=== PATIENT | male | born 2000 ===

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

== ENCOUNTER 2022-01-13 12:08 | Emergency (ER) | payer MEDICAID, SELFPAY | END 2022-01-13 16:44 | disposition left against medical advice (07) | PROVIDERS: Emergency Provider Emergency Medicine | DX: R10.9 Unspecified abdominal pain (principal) ==

== ENCOUNTER 2022-01-21 22:26 | Emergency (ER) | payer MEDICAID, SELFPAY ==
--- NOTE | ~2022-01-21 | CT_ITS ---
EXAMINATION: CT ABDOMEN AND PELVIS WITHOUT CONTRAST CLINICAL INFORMATION: Abdominal pain COMPARISON: None TECHNIQUE: Multidetector volumetric imaging was performed from the superior aspect of the liver through the pubic symphysis. Sagittal and coronal reformatted images were obtained on the technologist's workstation. This CT examination was performed using dose optimization techniques as appropriate, variously including the following: *Automated exposure control *Adjustment of mA and/or kV according to patient size (this includes techniques or standardized protocols for targeted exams where dose is matched to indication/reason for exam; i.e. extremities or head) *Use of iterative reconstruction technique DLP: 339 mGy-cm FINDINGS: LUNG BASES: The visualized lung bases are unremarkable. LIVER, GALLBLADDER, AND BILIARY TREE: The liver is normal in size, shape, and attenuation. No focal hepatic lesion or biliary ductal dilatation is present. The gallbladder is grossly unremarkable. PANCREAS: Unremarkable. SPLEEN: Unremarkable. ADRENAL GLANDS: Unremarkable. KIDNEYS AND URETERS: The kidneys are normal in size, shape, and attenuation. No hydronephrosis, hydroureter, or calculi seen. No perinephric stranding. BLADDER: Unremarkable. GASTROINTESTINAL TRACT: No evidence of bowel obstruction or significant wall thickening. No free fluid or free air is seen. ABDOMINAL WALL: No significant hernia is appreciated. LYMPH NODES: No lymphadenopathy is seen, though assessment is limited in the absence of intravenous contrast. VASCULAR: Unremarkable. PELVIC VISCERA: Unremarkable. OSSEOUS STRUCTURES: Unremarkable. CT/CT abdomen pelvis wo con IMPRESSION: No acute findings identified in the abdomen/pelvis.
[2022-01-22 00:51] VITALS: BP 133/70; PULSE 56; RESP 16; TEMP 36.2; O2SAT 98; BMI 21.8
[2022-01-22 01:10] LABS: Hematocrit 46.5 % (42.0-52.0); Hemoglobin 16.4 g/dl (14.0-18.0); Mean Corpuscular HGB Conc 35.3 g/dl (31.0-36.0); Mean Corpuscular Hemoglobin 30.5 pg (27.0-33.0); Mean Corpuscular Volume 86.6 fL (80.0-98.0); Mean Platelet Volume 11.2 fL (9.4-12.4); Platelet Count 229 X10*3/uL (160-400); Red Blood Count 5.37 X10*6/uL (4.60-5.80); White Blood Count 13.9 X10*3/uL (4.8-10.8)
[2022-01-22 01:14] LABS: Appearance Urine CLEAR; Color Urine YELLOW; Glucose Urine UA NEG (NEG); Leukocyte Esterase Urine NEG (NEG); Nitrite Urine NEG (NEG); PH 6.5 (5.0-8.0); Specific Gravity - Urine 1.015 (1.005-1.025); Urine Blood NEG (NEG); Urine Ketones 15 MG/DL (NEG); Urine Protein NEG (NEG-TRACE)
[2022-01-22 01:23] LABS: Bacteria Urine TRACE /LPF; RBC Urine 0-2 /HPF (0); Squamous Epithelial Cell Urine TRACE /LPF; WBC Urine 0-2 /HPF (0-4)
[2022-01-22 01:41] LABS: Alanine Aminotransferase 34 U/L (0-40); Albumin Level 5.1 g/dL (3.5-5.0); Alkaline Phosphatase 113 U/L (39-117); Anion Gap 14 (12-20); Aspartate Amino Transferase 29 U/L (5-37); Bilirubin Total 1.5 mg/dL (0.0-1.0); Blood Urea Nitrogen 9 mg/dL (9-16); Calcium 10.2 mg/dL (8.4-10.2); Carbon Dioxide 27 mmol/L (22-29); Chloride 103 mmol/L (96-108); Creatinine Clr Calc Pharmacy 108.4; Estimated Glomerular Filt Rate > 60; Glucose Random 104 mg/dL (60-115); Lipase 14 U/L (8-78); Potassium 4.2 mmol/L (3.3-5.1); Sodium 140 mmol/L (135-145); Total Protein 7.9 g/dL (6.5-8.0)
[2022-01-22 01:43] LABS: Amphetamine Screen Urine Not Detected (Not Detect); Barbiturates, Urine Not Detected (Not Detect); Benzodiazepines Screen Urine Not Detected (Not Detect); Cannabinoid Screen Urine POSITIVE (Not Detect); Cocaine Screen Urine Not Detected (Not Detect); Fentanyl, urine Not Detected (Not Detect); Opiate Screen Urine Not Detected (Not Detect); Phencyclidine Screen Urine Not Detected (Not Detect)
[2022-01-22 03:09] VITALS: BP 141/85; PULSE 64; RESP 18; TEMP 36.6; O2SAT 99
[2022-01-22 04:16] VITALS: BP 122/53; PULSE 95; RESP 14; O2SAT 100
--- NOTE | 2022-01-22 06:12 | ED_ITS ---
HPI - Abdominal Pain General Chief Complaint: Abdominal Pain Stated Complaint: stomach pain Time Seen by Provider: 01/22/22 04:32 Source: patient Mode of arrival: ambulatory Limitations: no limitations History of Present Illness HPI narrative: 21-year-old male came in for evaluation of abdominal pain. Patient feels abdominal discomfort for the past month also been having back pain, patient describes the pain as discomfort which is generalized in the abdomen, no nausea or vomiting, feels constipated, discomfort is not related to food or drink, nothing relieve his symptoms, no fever chills. Patient declined past surgical history, no similar symptoms in the past. Related Data Allergies Allergy/AdvReac Type Severity Reaction Status Date / Time No Known Allergies Allergy Unverified 03/29/20 17:36 [No Known Allergies*] Review of Systems Review of Systems All other systems are reviewed and are negative Constitutional: Reports as per HPI and Reports no additional constitutional complaints Eyes: Reports as per HPI and Reports no additional eye complaints Reports system reviewed and no additional complaints, except as documented Cardiovascular: Reports as per HPI and Reports no additional cardiovascular complaints Respiratory: Reports as per HPI and Reports no additional respiratory complaints Gastrointestinal: Reports as per HPI and Reports no additional gastrointestinal complaints Genitourinary: Reports no additional female genitourinary complaints Musculoskeletal: Reports no additional musculoskeletal complaints Skin/Breast: Reports system reviewed and no additional complaints, except as docu Psychiatric: Reports no additional psychiatric complaints Endocrine: Reports no additional endocrine complaints Hematologic/Lymphatic: Reports no additional hematologic/lymphatic complaints Allergic/Immunologic: Reports no additional allergic/immunologic complaints Reports system reviewed and no additional complaints, except as documented and Reports Abnormal speech present [facility] Social History Social History Advance Directives: No Advance Directives Information Provided: No Physical Exam ED Vital Signs: Vital Signs - 24 hr 01/22/22 00:51 01/22/22 03:09 01/22/22 04:16 Temperature 97.1 F 97.9 F Pulse Rate 56 64 95 Respiratory Rate 16 18 14 Blood Pressure 133/70 141/85 H 122/53 L Pulse Oximetry 98 99 100 Oxygen Delivery Method Room Air Room Air Room Air BMI result Body Mass Index 21.8 Vital signs have been reviewed as appeared to be correct. Blood pressure normal. Heart rate normal. Respiration rate normal. Temperature normal. Oxygen saturation normal. Appearance: Alert. Oriented X3. No acute distress. Head: Normal external exam. Normocephalic. Atraumatic. No [place] signs noted. No raccoon eyes noted Eyes: PERRLA. EOMI. Conjunctiva and sclera normal. Eyelids normal. ENT: TM's Normal. Pharynx normal. Uvula midline. Moist mucous membranes. No trismus noted. No drooling noted. No muffled voice noted. Neck: Normal inspection. Neck supple. FROM. No adenopathy. Thyroid Normal. No meningeal signs. No neck mass noted. CVS: Normal heart rate and rhythm. Heart sound normal. No murmurs noted. Pulses normal throughout. Respiratory: No respiratory distress. Painless inspiration. Breath sounds normal. No wheezes/rales/rhonchi noted. Chest nontender. No accessory muscle usage noted or decreased air movement noted. Abdomen: Soft and nontender. Bowel sounds normal in all 4 quadrants. No distention noted. No organomegaly noted. No visible injury noted. Back: No CVA tenderness. Full range of motion noted. Skin: Skin warm and dry. Normal skin color. Normal skin turgor. No rashes/lesions/lacerations noted. Extremities: No lower extremity edema. Extremities exhibit normal range of motion. Extremities nontender. Neuro: Oriented X 3. Cranial nerve exam: II-XII are grossly intact No motor deficit. No sensory deficit. Reflexes normal. Course Course Course Narrative: Abdominal pain for month, patient's symptoms is 2 nonspecific, physical exam and labs with CT of the abdomen and pelvis only revealed leukocytosis but no other acute findings. Will discharge the patient to follow up with gastr oenterologist. MDM - Abdominal Pain Medical Records Attestation: I reviewed the patient's medical records. Lab Data Attestation: I reviewed the patient's lab results. Result diagrams: 01/22/22 01:01 01/22/22 01:01 Labs: Lab Results 01/22/22 01/22/22 01/22/22 Range/Units 01:01 01:01 01:01 WBC 13.9 H (4.8-10.8) X10*3/uL RBC 5.37 (4.60-5.80) X10*6/uL Hgb 16.4 (14.0-18.0) g/dl Hct 46.5 (42.0-52.0) % MCV 86.6 (80.0-98.0) fL MCH 30.5 (27.0-33.0) pg MCHC 35.3 (31.0-36.0) g/dl RDW 12.0 (11.0-16.0) % Plt Count 229 (160-400) X10*3/uL MPV 11.2 (9.4-12.4) fL Absolute Nucleated RBC 0.000 (0.0-0.012) X10*3/uL Nucleated RBC % (auto) 0.0 (0.0-0.2) /100WBC Sodium 140 (135-145) mmol/L Potassium 4.2 (3.3-5.1) mmol/L Chloride 103 (96-108) mmol/L Carbon Dioxide 27 (22-29) mmol/L Anion Gap 14 (12-20) BUN 9 (9-16) mg/dL Creatinine 1.04 (0.5-1.4) mg/dL Estim Creat Clear Calc 108.4 Estimated GFR > 60 Random Glucose 104 (60-115) mg/dL Calcium 10.2 (8.4-10.2) mg/dL Total Bilirubin 1.5 H (0.0-1.0) mg/dL AST 29 (5-37) U/L ALT 34 (0-40) U/L Alkaline Phosphatase 113 (39-117) U/L Total Protein 7.9 (6.5-8.0) g/dL Albumin 5.1 H (3.5-5.0) g/dL Lipase 14 (8-78) U/L Urine Color YELLOW Urine Appearance CLEAR Urine pH 6.5 (5.0-8.0) Ur Specific [place] 1.015 (1.005-1.025) Urine Protein NEG (NEG-TRACE) MG/DL Urine Glucose (UA) NEG (NEG) MG/DL Urine Ketones 15 (NEG) MG/DL Urine Blood NEG (NEG) Urine Nitrite NEG (NEG) Ur Leukocyte Esterase NEG (NEG) Urine RBC 0-2 (0) /HPF Urine WBC 0-2 (0-4) /HPF Ur Squamous Epith Cells TRACE /LPF Urine Bacteria TRACE /LPF Urine Opiates Screen (Not Detect) Urine Fentanyl Screen (Not Detect) Ur Barbiturates Screen (Not Detect) Ur Phencyclidine Scrn (Not Detect) Ur Amphetamines Screen (Not Detect) U Benzodiazepines Scrn (Not Detect) Urine Cocaine Screen (Not Detect) U Marijuana (THC) Screen (Not Detect) 01/22/22 Range/Units 01:01 WBC (4.8-10.8) X10*3/uL RBC (4.60-5.80) X10*6/uL Hgb (14.0-18.0) g/dl Hct (42.0-52.0) % MCV (80.0-98.0) fL MCH (27.0-33.0) pg MCHC (31.0-36.0) g/dl RDW (11.0-16.0) % Plt Count (160-400) X10*3/uL MPV (9.4-12.4) fL Absolute Nucleated RBC (0.0-0.012) X10*3/uL Nucleated RBC % (auto) (0.0-0.2) /100WBC Sodium (135-145) mmol/L Potassium (3.3-5.1) mmol/L Chloride (96-108) mmol/L Carbon Dioxide (22-29) mmol/L Anion Gap (12-20) BUN (9-16) mg/dL Creatinine (0.5-1.4) mg/dL Estim Creat Clear Calc Estimated GFR Random Glucose (60-115) mg/dL Calcium (8.4-10.2) mg/dL Total Bilirubin (0.0-1.0) mg/dL AST (5-37) U/L ALT (0-40) U/L Alkaline Phosphatase (39-117) U/L Total Protein (6.5-8.0) g/dL Albumin (3.5-5.0) g/dL Lipase (8-78) U/L Urine Color Urine Appearance Urine pH (5.0-8.0) Ur Specific [place] (1.005-1.025) Urine Protein (NEG-TRACE) MG/DL Urine Glucose (UA) (NEG) MG/DL Urine Ketones (NEG) MG/DL Urine Blood (NEG) Urine Nitrite (NEG) Ur Leukocyte Esterase (NEG) Urine RBC (0) /HPF Urine WBC (0-4) /HPF Ur Squamous Epith Cells /LPF Urine Bacteria /LPF Urine Opiates Screen Not Detected (Not Detect) Urine Fentanyl Screen Not Detected (Not Detect) Ur Barbiturates Screen Not Detected (Not Detect) Ur Phencyclidine Scrn Not Detected (Not Detect) Ur Amphetamines Screen Not Detected (Not Detect) U Benzodiazepines Scrn Not Detected (Not Detect) Urine Cocaine Screen Not Detected (Not Detect) U Marijuana (THC) Screen POSITIVE H (Not Detect) Imaging Data Abdomen and pelvis CT: Attestation: I personally reviewed and interpreted this imaging study as follows: Radiologist's impression: No acute findings identified in the abdomen/pelvis.? ? Discharge Plan Discharge Clinical Impression: Abdominal pain Patient Disposition: Home, Self-Care Instructions: Abdominal Pain (ED) Referrals: [facility] [Primary Care Provider] - Chadd Saenz MD [Physician] -
[2022-01-22 06:17] VITALS: BP 110/62; PULSE 76; RESP 14; O2SAT 99
== END 2022-01-22 06:46 | disposition home or self-care (01) ==
PROVIDERS: Emergency Provider Emergency Medicine
DX: R10.9 Unspecified abdominal pain (principal); D72.829 Elevated white blood cell count, unspecified; F12.90 Cannabis use, unspecified, uncomplicated
CPT/HCPCS: 36415; 74176; 80053; 80307; 81001; 83690; 85027; 99283; 99284

== ENCOUNTER 2022-05-15 12:00 | Outpatient (RCR) | payer MEDICAID, SELFPAY | END 2022-05-29 10:54 | disposition home or self-care (01) | LOC: HO.PT 12:00 | PROVIDERS: PCP Pediatrics; Visit Provider Pediatrics | DX: M54.9 Dorsalgia, unspecified (principal) | CPT/HCPCS: 97110; 97161 ==

== ENCOUNTER 2022-06-13 | Outpatient (REF) | payer MEDICAID, SELFPAY ==
--- NOTE | ~2022-06-13 | XR_ITS ---
EXAMINATION: XR SHOULDER, LEFT CLINICAL INFORMATION: Pain COMPARISON: None TECHNIQUE: AP external rotation, Grashey, scapular Y, and axillary views of the left shoulder. FINDINGS: The bones and soft tissues are normal. No fracture. Glenohumeral and acromioclavicular alignment is anatomic with normal joint space. No abnormal soft tissue calcifications. XR/XR shoulder LT min 2V IMPRESSION: Normal left shoulder.
== END 2022-06-13 00:01 | disposition home or self-care (01) ==
LOC: HO.HOSX
PROVIDERS: Visit Provider Physician Assistant
DX: M25.312 Other instability, left shoulder (principal); M25.511 Pain in right shoulder
CPT/HCPCS: 73030; 99202

== ENCOUNTER 2022-08-04 11:38 | Outpatient (REF) | payer MEDICAID, SELFPAY ==
--- NOTE | ~2022-08-04 | XR_ITS ---
EXAMINATION: XR SHOULDER, RIGHT CLINICAL INFORMATION: Pain COMPARISON: None TECHNIQUE: Three views of the right shoulder. FINDINGS: No fracture or dislocation. The glenohumeral joint is well aligned. The joint space is maintained. The acromioclavicular joint is intact. The visualized lung is clear. The visualized ribs are intact. XR/XR shoulder RT min 2V IMPRESSION: Normal right shoulder.
== END 2022-08-04 11:39 | disposition home or self-care (01) ==
LOC: HO.HOSX 11:38
PROVIDERS: Visit Provider Physician Assistant
DX: M25.312 Other instability, left shoulder (principal); M25.512 Pain in left shoulder; M25.511 Pain in right shoulder
CPT/HCPCS: 73030; 99212

== ENCOUNTER 2022-09-03 15:00 | Outpatient (RCR) | payer MEDICAID, SELFPAY ==
--- NOTE | 2022-08-25 14:32 | MHC.PT.EP ---
[facility] [place] Office [place] Office [place] Office [address] [phone] F: [phone] F: [phone] F: [phone] F: [phone] Physical Therapy Plan of Care Date of Evaluation: Date of Surgery: N/A Diagnosis: pain in right shoulder (RC) Assessment: pt is a 21 y/o male presenting to physical therapy w/ referring diagnosis of pain in right shoulder. Impairments include pain, decreased range of motion, decreased strength, impaired functional mobility, impaired postural awareness, and altered ambulation mechanics. pt is a good candidate for skilled PT due to age, potential remediation of impairments, typical disease/condition progression and prognosis, comorbidities, and motivation. pt would benefit from skilled PT intervention to provide a tailored strengthening and stretching exercise program, functional training, gait training, postural re-training, neuromuscular re-education, modalities as needed for pain, equipment safety demonstration. Frequency and Duration: The patient will be seen 2x/wk for 3 wks Short Term Goals: pt will be I w/ HEP to promote self-management of condition. pt will improve B middle and lower trap strength by 1 MMT grade to promote ease in overhead reaching/lifting for ADLs. Custodial Goals: pt will report a statistically significant improvement in self-reported outcome, SPADI, to promote return to PLOF. pt will report <3/10 B shoulder pain w/ lifting 15# object from floor to chest height. Treatment Plan: Modalities to reduce pain, spasms and effusion. Manual therapy to restore motion and function. Therapeutic exercise to improve strength and flexibility. Neuromuscular re-education for posture and balance. Therapeutic activities to return to functional activities of daily living. Electronically signed by: Rina Marquez PT, DPT Please sign and return to therapist. Thank you for your referral.
--- NOTE | 2022-09-24 12:11 | MHC.PT.DC ---
[facility] [place] [facility] [place] Office [address] [facility] [phone] F: [phone] F: [phone] F: [phone] F: [phone] Physical Therapy Discharge Report Diagnosis: pain in right shoulder (RC) Date of Surgery: N/A Date of Evaluation: 08/25/22 Date of Discharge: 09/24/22 Treatments to Date: 3 Cancellations to Date: 1 No Shows to Date: 2 Discharge Status: Visit Non-compliance Discharge Summary: The patient no showed his last scheduled appointment. He was reporting mild improvement in shoulder pain with the few visits he did attend. He presented with significant posterior chain and periscapular weakness most likely contributing to his pain. He was given a home exercise program including general shoulder and scapular strengthening. The patient is not new to this therapist and has had poor attendance compliance in the past. He again is discharged from this physical therapy plan of care due to visit non-compliance. Electronically signed by: Rina Marquez PT, DPT Please sign and return to therapist. Thank you for your referral.
== END 2022-09-24 12:11 | disposition home or self-care (01) ==
LOC: HO.PT 15:00
PROVIDERS: PCP Pediatrics; Visit Provider Physician Assistant
DX: M25.511 Pain in right shoulder (principal)
CPT/HCPCS: 97110; 97161

== ENCOUNTER → 2022-09-15 14:47 | Outpatient (BNVA) | payer MEDICAID, SELFPAY | PROVIDERS: PCP Pediatrics; Visit Provider Physician Assistant | DX: M25.312 Other instability, left shoulder (principal); M25.511 Pain in right shoulder | CPT/HCPCS: 99212 ==

== ENCOUNTER 2023-01-16 16:21 | Emergency (ER) | payer MEDICAID, SELFPAY ==
--- NOTE | 2023-01-16 16:24 | ED_ITS ---
HPI - General Adult General Chief complaint: Wound/Laceration Stated complaint: Finger inj at work Time Seen by Provider: 01/16/23 19:28 Related Data Home Medications ?Medication ?Instructions ?Recorded ?Confirmed No Known Home Meds 06/13/22 06/13/22 Allergies Allergy/AdvReac Type Severity Reaction Status Date / Time No Known Allergies Allergy Verified 01/16/23 16:41 [No Known Allergies*] PMFSH Social History Social History Advance Directives: No Advance Directives Information Provided: No Current occupational status: employed Current occupation: sale associate/ right hand dominant Physical Exam ED Vital Signs: BMI result Body Mass Index 20.7 Course Course Course Narrative: This is an RME: Additional HPI, ROS, PE not included below will be deferred to primary provider. 22 year old male with history of shoulder pain presents with a laceration of 3rd finger on right hand following something falling on his hand at work. Patient requires a new tetanus shot. Patient denies nausea, vomiting, headache, vision changes, numbness, tingling. Plan: likely requires repair Medications Administered Discontinued Medications Generic Name Dose Route Start Last Admin Trade Name Freq PRN Reason Stop Dose Admin Diphtheria/Tetanus/Acell Pertussis 0.5 ml 01/16/23 16:41 01/16/23 17:37 Diphth,Pertus(Acell),Tet Adult 0.5 Ml Syringe IM 01/16/23 16:42 Not Given .ONCE ONE Lidocaine HCl 2 ml 01/16/23 20:00 01/16/23 20:08 Lidocaine Hcl 1 % Mpf 2 Ml Vial INFILTRATI 01/16/23 20:01 2 ml ONCE ONE Administration Discharge Plan Discharge Clinical Impression: Laceration Patient Disposition: Home, Self-Care Instructions: Finger Laceration (ED) Additional Instructions: Local care as advised Suture removal 7-10 days Keep the wound neat and clean Prescriptions: No Action No Known Home Meds Stand Alone Forms: Work/School Release Interventions: ED Discharge Assessment Last Done: 01/16/23 21:00 Discharge Date/Time: 01/16/23 21:00 Print Language: Maltese
[2023-01-16 16:41] VITALS: BP 139/64; PULSE 77; RESP 18; TEMP 36.8; O2SAT 100; BMI 20.7
--- NOTE | 2023-01-16 17:38 | PC.NURSE ---
Patient adamantly refused TDaP vaccine. Stated I don't like when things are put inside of my body. I will have a full blown panic attack if a needle comes near me injecting me with something. I'm sorry, I'm not taking the vaccine. Awaiting evaluation by SIL Mora. Pt aware that sutures for right middle finger are a possibility. Pt states that's fine, stitches don't bother me, but shots do bother me . SIL Mora aware of refusal of medication. Information sheet given regarding vaccine.
--- NOTE | 2023-01-16 20:47 | ED.WOUNDLAC ---
HPI - Wound/Laceration General Chief Complaint: Wound/Laceration Stated Complaint: Finger inj at work Time Seen by Provider: 01/16/23 19:28 Source: patient Mode of arrival: ambulatory Limitations: no limitations History of Present Illness HPI narrative: Patient got superficial laceration right middle finger at work flap like laceration medial aspect of the right middle finger no other injuries Related Data Home Medications Medication Instructions Recorded Confirmed No Known Home Meds 06/13/22 06/13/22 Allergies Allergy/AdvReac Type Severity Reaction Status Date / Time No Known Allergies Allergy Verified 01/16/23 16:41 [No Known Allergies*] [facility] Social History Social History Advance Directives: No Advance Directives Information Provided: No Current occupational status: employed Current occupation: sale associate/ right hand dominant Physical Exam Vital Signs: Vital Signs: Last Vital Signs Temp 98.3 F 01/16/23 16:41 Pulse 77 01/16/23 16:41 Resp 18 01/16/23 16:41 BP 139/64 01/16/23 16:41 Pulse Ox 100 01/16/23 16:41 O2 Del Method Room Air 01/16/23 16:41 BMI result Body Mass Index 20.7 Extrem: Hand/finger images: 1. 2 cm flap laceration medial aspect of the right middle finger neurovascular intact tendons intact Medications Administered Discontinued Medications Generic Name Dose Route Start Last Admin Trade Name Freq PRN Reason Stop Dose Admin Diphtheria/Tetanus/Acell Pertussis 0.5 ml 01/16/23 16:41 01/16/23 17:37 Diphth,Pertus(Acell),Tet Adult 0.5 Ml Syringe IM 01/16/23 16:42 Not Given .ONCE ONE Lidocaine HCl 2 ml 01/16/23 20:00 01/16/23 20:08 Lidocaine Hcl 1 % Mpf 2 Ml Vial INFILTRATI 01/16/23 20:01 2 ml ONCE ONE Administration Procedures Laceration Laceration 1: Site: hand (Right middle finger) Side (If applicable): right Description: flap Depth: simple, single layer Local Anesthetic: lidocaine 1% Amount of anesthesia used (mL): 1.5 Skin layer closed with: nylon Size (cm): 5-0 Number of sutures: 5 Technique: simple, interrupted Discharge Plan Discharge Clinical Impression: Laceration Patient Disposition: Home, Self-Care Instructions: Finger Laceration (ED) Additional Instructions: Local care as advised Suture removal 7-10 days Keep the wound neat and clean Prescriptions: No Action No Known Home Meds Stand Alone Forms: Work/School Release Interventions: ED Discharge Assessment Last Done: 01/16/23 21:00 Discharge Date/Time: 01/16/23 21:00
== END 2023-01-16 21:00 | disposition home or self-care (01) ==
PROVIDERS: Emergency Provider Internal Medicine; PCP Pediatrics
DX: S61.212A Laceration without foreign body of right middle finger without damage to nail, initial encounter (principal); S60.412A Abrasion of right middle finger, initial encounter; Y28.9XXA Contact with unspecified sharp object, undetermined intent, initial encounter; Y93.9 Activity, unspecified; Y92.9 Unspecified place or not applicable; Y99.0 Civilian activity done for income or pay; Z23 Encounter for immunization
CPT/HCPCS: 90471; 99282; 99283

== ENCOUNTER 2025-05-16 08:50 | Outpatient (REF) | payer MEDICAID, SELFPAY ==
--- OUTSIDE RECORDS SUMMARY | 2025-05-16 09:21 | XMS_ITS | Clinical Summary ---
Author Organization [employer] Address [address] [facility] [address] [place] [address] Care Team Providers Care Stock Letterer Name Role Phone Name, Juan Carlos NIELSEN Primary Care Provider [phone] Allergies No known active allergies Medications * This document contains information received from the source organization and may not represent a complete record from that organization. ketoconazole (NIZOral) 2 % shampoo Apply topically 2 (two) times a week. 120 mL Active Active Problems Problem Noted Date Diagnosed Date Health care maintenance 12/02/2024 Persistent depressive disorder 12/01/2024 Assessment & Plan (12/07/2024 4:35 PM EDT): During IBH Consult Jose presenting with depressed mood, Tearful, crying spells , hopelessness, irritable mood, loss of interests/pleasure , sense of isolation/loneliness , isolating, psychomotor retardation, fatigue/loss of energy, inappropriate/excessive guilt , difficulty concentrating, indecisiveness and excessive worry/anxiety, difficulty controlling worry, anxiety/worry associated to restlessness and/or feeling keyed-up/On edge , easily fatigued , difficulty concentrating and/or mind going blank , irritability, and muscle tension , and Fear ; for a period of 18+ mo, for some symptoms in the context of severe depression, lack of motivation and lack of OP services to treat chronic conditions. Pt has being feeling emotionally overwhelmed and reports long hx of on-going depression. Jose does not identified specific triggers associated to his mental health condition. However, his low-mood, lack of motivation and losing sense of purpose has being identified as emotional triggers in the past. Pt reports he is willing to make changes towards a healthier mental health state. Provided a safe space for pt to share his experiences and validated his emotions. 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 Date Type Department Care Team Description 03/21/2025 1:15 PM EDT Office Visit [facility] [address] [place] [phone] Juan Carlos Elliott MD Depression with anxiety (Primary Dx); Mild intermittent asthma without complication 03/21/2025 Travel 03/21/2025 Telephone [facility] [address] [place] [address] [phone] Katelin Correa MA chart prep 03/14/2025 Patient Outreach [facility] [address] [place], [place] [id number] Juan Carlos Elliott MD Pre-visit Planning ([facility] unable to reach [facility]) from Last 3 Months Immunizations Immunization Administration Dates Next Due DT (pediatric) 01/23/2003,2002 DTP 10/23/2006,04/11/2004,03/17/2003 HPV 9-Valent 04/21/2017,06/06/2015,05/07/2015 Hep A, ped/adol, 2 dose 09/10/2010,09/14/2009 Hep B, Adolescent or Pediatric 8,01/23/2003,2002,10/07 Hib (HbOC) 04/11/2004,01/23/2003,2002 IPV 10/23/2006, 3,01/23/2003,11/22 Influenza injectable quadriv alent IIV4 with preservative 04/21/2017 Influenza injectable quadriv alent preservative free 04/21/2017,06/06/2015 Influenza, Split (incl. denise fied surface antigen) 10/03/2013,04/01/2012 MMR 10/23/2006,11/28/2003 Meningococcal MCV4P [id number]-135 05/07/2015 Pneumococcal Conjugate PCV 7 03/20/2003,01/24/20 03,2002 Rotavirus Monovalent 03/20/2003,01/23/2003,11/22 Tdap 05/07/2015 Varicella 08/19/2007,11/28/2003 Family History Medical History Relation Name Comments Dm2 Father Relation Name Status Comments Father Social History Tobacco Use Types Packs/Day Years Used Date Smoking Tobacco: Never Smokeless Tobacco: Never Tobacco Cessation:Counseling Given: Not Answered Comments:Started smoking at his 21 y of age until now smokes 5- 10 a day Alcohol Use Standard Drinks/Week Comments Yes 0 (1 standard drink = 0.6 oz pur e alcohol) social Depression Answer Date Recorded Patient Health Questionnaire-9 Score 21 12/01/2024 Patient Health Questionnaire-9 Score 21 12/01/2024 Last PHQ-9: Questionnaire Data Not on file 0 12/01/2024 Housing Stability Answer Date Recorded What is your housing situation today? I have kaleighcharly hunter 12/01/[address] you li ve. Do you have problems with any of the following? None of the above 12/01/2024 Food Insecurity Answer Date Recorded Within the past 12 months, y ou worried that your food would run out before you got money to buy more: Never True 12/01/2024 Within the past 12 months,th e food you bought just didn't last and you didn't have enough money to get more: Never True Transportation Answer Date Recorded In the past 12 months, has l ack of transportation kept you from medical appts, meetings, work or from getting things needed for daily living? No 12/01/2024 Utilities Answer Date Recorded In the past 12 months, has t he [employer], [employer], oil or water company threatened to shut off services in your home? No 12/01/2024 Depression Answer Date Recorded Patient Health Questionnaire-2 Score 6 12/01/2024 Internet Access Answer Date Recorded Internet Access Q1 Yes 12/01/2024 Internet Access Q2 Not on file 12/01/2024 Sex and Gender Information Value Date Recorded Sex Assigned at Male 05/12/2022 10:20 AM EDT Legal Sex Male 10:20 AM EDT Gender Identity Male 05/12/2022 10:20 AM EDT Sexual Orientation Don't know 05/12/2022 10 :20 AM EDT Last Filed Vital Signs Vital Sign Reading Time Taken Comments Blood Pressure 117/82 03/21/2025 1:22 PM EDT Pulse 100 03/21/2025 1:22 PM EDT Temperature 37.1 C (98.8 F) 03/21/2025 1:22 PM EDT Respiratory Rate 20 03/21/2025 1:22 PM EDT Oxygen Saturation 99% 03/21/2025 1:22 PM EDT Inhaled Oxygen Concentration - - Weight 70.4 kg (155 lb 3.2 oz) 03/21/2025 1:22 P M EDT Height 177.8 cm (5' 10 ) 03/21/2025 1:22 PM EDT Body Mass Index 22.27 03/21/2025 1:22 PM EDT Plan of Treatment Health Maintenance Due Date Last Done Comments Chlamydia and Gonorrhea Screening 2002 Family Planning (PISQ) 2017 Meningococcal B Vaccine (1 of 2 - Standard) 2018 Pneumococcal Vaccine: Pediatrics (0 to 5 Years) and At-Risk Patients (6 to 49) Years (1 of 2 - PCV) 2021 03/20/2003, 01/23/2003, 2002 COVID-19 Vaccine ( - season) 2025 Influenza Vaccine (#1) 2025 7, 04/21/2017, 06/06/2015, Additional history exists DTaP/Tdap/Td Vaccines (5 - Td or Tdap) 05/07/2025 05/07/2015, 10/23/2006, 04/11/2004, Additional history exists Depression Monitoring 06/03/2025 12/01/2024, 025 Alcohol/Substance Use Screening 12/01/2025 12/01/2024 SDOH Screening 12/01/2025 12/01/2024 Disability Screening 03/21/2026 03/21/2025 Tobacco Screening 03/21/2026 03/21/2025 Zoster Vaccines (1 of 2) 2052 RSV Patients and Patients Aged 60 years or older (1 - 1-dose 75+ series) 2077 Rotavirus Vaccines Completed 03/20/2003, 0 01/23/2003, 2002 HIB Vaccines Completed 04/11/2004, 01/10, 2002 IPV Vaccines Completed 10/23/2006, 01/2003, 01/23/2003, Additional history exists Hepatitis B Vaccines Completed 03/14/2008, 01/23/2003, 2002, Additional history exists Hepatitis A Vaccines Completed 09/10/2010, 09/15/19 10 Meningococcal Vaccine Aged Out 05/07/2015 No dulce jelly eligible based on patient's age to complete this topic HPV Vaccines Completed 04/21/2017, 05/14, 05/07/2015 HIV Screening Completed 02/11/2022 Hepatitis C Screening Completed 02/11/2022 RSV under 20 months Aged Out No longe r eligible based on patient's age to complete this topic Procedures Procedure Name Priority Date/Time Associated Diagnosis Comments ZZZ HISTORICAL HEPATITIS C AB W/REFL TO HCV RNA, QN, PCR Routine 02/11/2022 4:27 PM EDT HIV 1/2 ANTIGEN/ANTIBODY, FOURTH GENERATION W/RFL Routine 02/11/2022 4:27 PM EDT from Last 3 Months or Most Recently Relevant to Health Maintenance Results * HEPATITIS C AB W/REFL TO HCV RNA, QN, PCR (02/11/2022 4:27 PM EDT) HEPATITIS C ANTIBODY NON-REACT [facility]Y NON-REACT [facility]Y [facility] INDEX 0.15 <1.00 [facility] Comment: HCV antibody was non-reactive. There is no laboratory evidence of HCV infection. In most cases, no further action is required. However, if recent HCV exposure is suspected, a test for HCV RNA (test code 40400) is suggested. For additional information please refer to [email or web address]/faq/TON05a9 (This link is being provided for informational/ educational purposes only.) 02/11/2022 4:27 PM EDT Ludin Pierce MD HISTORICAL/NON ORDERABLE LABS F inal Result Performing Organization Address [facility] Co de Phone Number [facility] [address] * HIV 1/2 ANTIGEN/ANTIBODY,FOURTH GENERATION W/RFL (02/11/2022 4:27 PM EDT) Pathologist [facility] [place] HIV-1/2 ANTIGEN AND ANTIBODIES, 4TH GENERATION W/ REFLEX NON-REACT CHINMAY NON-REACT [facility]Y [facility] Comment: HIV-1 antigen and HIV-1/HIV-2 antibodies were not detected. There is no laboratory evidence of HIV infection. PLEASE NOTE: This information has been disclosed to you from records whose confidentiality may be protected by state law. If your state requires such protection, then the state law prohibits you from making any further disclosure of the information without the specific written consent of the person to whom it pertains, or as otherwise permitted by law. A general authorization for the release of medical or other information is NOT sufficient for this purpose. For additional information please refer to [email or web address]/OIS071 (This link is being provided for informational/ educational purposes only.) The performance of this assay has not been clinically validated in patients less than 2 years old. 02/11/2022 4:27 PM EDT Ludin Pierce MD LAB BLOOD ORDERABLES Final Resu lt Performing Organization Address [facility] Co de Phone Number [facility] [address] from Last 3 Months or Most Recently Relevant to Health Maintenance Insurance [facility] Care Teams Stock Letterer Relationship Specialty Start Date End Date Name, MD Juan Carlos [address] [place] [phone] PCP - General Internal Medicine 01/25/25
[2025-05-16 12:23] LABS: Hematocrit 52.4 % (42.0-52.0); Hemoglobin 18.2 g/dl (14.0-18.0); Mean Corpuscular HGB Conc 34.7 g/dl (31.0-36.0); Mean Corpuscular Hemoglobin 31.3 pg (27.0-33.0); Mean Corpuscular Volume 90.0 fL (80.0-98.0); NRBC Abs Auto 0.000 X10*3/uL (0.0-0.012); NRBC Pct Auto 0.0 /100WBC (0.0-0.2); Platelet Count 214 X10*3/uL (160-400); Red Blood Count 5.82 X10*6/uL (4.60-5.80); White Blood Count 5.9 X10*3/uL (4.8-10.8)
[2025-05-16 12:48] LABS: Alanine Aminotransferase 32 U/L (0-40); Albumin Level 5.2 g/dL (3.5-5.0); Alkaline Phosphatase 82 U/L (39-117); Anion Gap 14 (12-20); Aspartate Amino Transferase 29 U/L (5-37); Blood Urea Nitrogen 9 mg/dL (9-16); Calcium 9.8 mg/dL (8.4-10.2); Carbon Dioxide 28 mmol/L (22-29); Chloride 103 mmol/L (96-108); Estimated Glomerular Filt Rate > 60; Potassium 3.7 mmol/L (3.3-5.1); Sodium 141 mmol/L (135-145); Total Protein 7.9 g/dL (6.5-8.0)
[2025-05-16 12:58] LABS: Syphilis Screen Nonreactive (Nonreactive)
[2025-05-16 13:04] LABS: HBS Num1 45.02 mIU/mL (0-7.99); HBc Num1 0.09 S/CO (0.00-0.79); HBsAGNum1 0.33 S/CO (0.00-0.99); HIV Num 1 0.06 S/CO (0.00-0.99); Hepatitis B Surface Antigen Negative (Negative); ~HepC Num1 0.12 S/CO (0.00-0.79); ~Hepatitis B Surface Antibody REACTIVE (Nonreactive); ~Hepatitis C Antibody Nonreactive (Nonreactive)
== END 2025-05-16 08:51 | disposition home or self-care (01) ==
LOC: HO.HHCL 08:50
PROVIDERS: PCP Internal Medicine Geriatric Medicine; Visit Provider Student in an Organized Health Care Education/Training Program
DX: Z00.00 Encounter for general adult medical examination without abnormal findings (principal); Z11.4 Encounter for screening for human immunodeficiency virus [HIV]; Z11.59 Encounter for screening for other viral diseases
CPT/HCPCS: 36415; 80053; 83036; 84443; 85027; 86704; 86706; 86780; 86803; 87340; 87389